=== PATIENT | male | born 2005 | race Caucasian/White ===

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

== ENCOUNTER 2025-01-23 16:21 | Emergency (ER) | payer BC, SELFPAY ==
[2025-01-23 16:30] VITALS: BP 137/64; PULSE 78; RESP 18; TEMP 36.4; O2SAT 100
--- NOTE | 2025-01-23 16:47 | ED_ITS ---
HPI - URI/Sore Throat General Chief Complaint: Upper Respiratory Infection Stated Complaint: Sinus Time Seen by Provider: 01/23/25 16:38 Source: patient and RN notes reviewed Mode of arrival: ambulatory Limitations: no limitations History of Present Illness HPI Narrative: Patient presents today complaining of a slight cough since last night with sore throat, postnasal drip, body aches, headache, nasal congestion and some mild sweats since this morning. Denies fever, shortness of breath, chest pain. He has tried no medication for symptoms prior to arrival. History of some seasonal allergies in the past but does not currently take any medication for them. Related Data Home Medications ?Medication ?Instructions ?Recorded ?Confirmed ?Last Taken ?Type No Home Medications 01/23/25 01/23/25 Unknown History Allergies Allergy/AdvReac Type Severity Reaction Status Date / Time No Known Allergies Allergy Verified 01/23/25 16:33 Review of Systems Review of Systems: CONSTITUTIONAL: Denies fever, chills.+ body aches, sweats EYES: Denies visual changes, redness, or discharge. ENT: Denies otalgia.+ sore throat, congestion, rhinorrhea CARDIOVASCULAR: Denies chest pain, palpitations, or edema. RESPIRATORY: Denies dyspnea.+ cough GASTROINTESTINAL: Denies abdominal pain, nausea, vomiting, or diarrhea. GENITOURINARY: Denies dysuria or hematuria. SKIN: Denies rash, itching, or wounds. MUSCULOSKELETAL: Denies back pain, joint pain, or myalgia. NEUROLOGIC: Denies headache, numbness, tingling, or weakness. PSYCH: Denies depression or anxiety. [facility] Past Medical History Medical History Rash Exposure to COVID-19 virus Low vitamin D level Surgical History Surgical History History of tonsillectomy and adenoidectomy Family History Family History Father No problems noted. Mother No problems noted. Sibling No problems noted. Social History Social History (Updated 08/21/24 @ 12:07 by Iram Golden MA) Smoking status: Never smoker Second hand tobacco smoke exposure: No Alcohol intake: never Alcohol use details: 8-14 a week Substance use: current Do You Feel Safe in your Home?: Yes Lack of Transportation: No Lack of Food: Never True Current Housing: I Have Housing Concerned About Future Housing: No Difficulty Paying Gas/Electric Bills: No Difficulty Paying for Meds: No Currently Unemployed: No Education: High School Diploma/GED Difficulty w/ Childcare or Family Care: No Living arrangements: with friend(s) Occupation/Education: student Additional occupation/education comments: [address] [place] [address] Gender identity (if verbalized by the patient): Male Agree to blood products: Yes Comments At time of signature, I have reviewed and agree with nursing past medical, surgical, social and family history unless otherwise noted. Please see nursing chart for further information. There is no relevant family history pertinent to the presenting complaint Exam Narrative: GENERAL: Mildly ill-appearing, well-nourished, and in no acute distress. HEAD: Normocephalic, atraumatic. EYES: EOMI. No redness or drainage. Conjunctivae normal. ENT: Mucous membranes pink and moist. Nares congested with rhinorrhea. TMs normal bilaterally. Throat normal with small amount of postnasal drainage. Uvula midline. NECK: Normal AROM. Supple. No lymphadenopathy. CHEST: No respiratory distress. Clear to auscultation. HEART: Regular rate and rhythm. No murmur appreciated. EXTREMITIES: Normal range of motion. No edema. SKIN: Warm, dry, no rash. Capillary refill normal. Normal skin turgor. NEURO: No focal deficits. Alert and oriented x3. Gait steady. PSYCH: Normal affect. No signs of depression or anxiety. Course Course Level of Care: Express Care Visit Vital Signs Vital signs: Vital Signs Temperature 97.6 F 01/23/25 16:30 Pulse Rate 78 01/23/25 16:30 Respiratory Rate 18 01/23/25 16:30 Blood Pressure 137/64 01/23/25 16:30 Pulse Oximetry 100 01/23/25 16:30 Oxygen Delivery Room Air 01/23/25 16:30 Temperature 97.6 F 01/23/25 16:30 Pulse Rate 78 01/23/25 16:30 Respiratory Rate 18 01/23/25 16:30 Blood Pressure 137/64 01/23/25 16:30 Pulse Oximetry 100 01/23/25 16:30 Oxygen Delivery Room Air 01/23/25 16:30 Reviewed MDM - URI/Sore Throat MDM Narrative Medical decision making narrative: Patient declines testing for influenza or COVID-19. Symptoms likely viral in etiology. Discussed [id number] medication use and duration of illness. No prescription medications indicated at this time. Anticipatory guidance given. Differential Diagnosis Differential diagnosis: Likely upper respiratory infection, sinusitis, viral infection, influenza and other (COVID-19) Critical Care Time Critical Care Time Critical Care Time: No Discharge Plan Discharge Clinical Impression: Upper respiratory infection Qualifiers: URI type: unspecified URI Qualified Code(s): J06.9 - Acute upper respiratory infection, unspecified Patient Disposition: Home Condition: Stable Instructions: Upper Respiratory Infection (DC) Additional Instructions: Your symptoms are likely due to a viral illness or seasonal allergies, both of which are not treated with antibiotics. Virus symptoms can last for up to 7- 10days. Take Tylenol or ibuprofen for pain or fever. Consider starting an antihistamine/decongestant combination such as Zyrtec D, Claritin-D, or Ines D. Rest and stay hydrated. Follow up with your PCP in 7-10 days if symptoms are not improving. Go to the ER immediately if you develop shortness of breath, difficulty swallowing, or any other concerning symptoms. Your blood pressure was elevated above 120/80 today at Urgent Care. This puts you above the threshold for follow up. Please schedule a followup visit with your personal physician as soon as possible, for further evaluation and treatment. Even blood pressure exceeding 120/80 may indicate pre-hypertension. Patient Language: Cambodian Prescriptions: No Action No Home Medications Follow-up/Referrals: PHYSICIAN,COMMERCIAL HVAC TECHNICIAN [Primary Care Provider] - Time of Disposition: 16:48
== END 2025-01-23 16:53 | disposition home or self-care (01) ==
PROVIDERS: Emergency Provider Nurse Practitioner
DX: J06.9 Acute upper respiratory infection, unspecified (principal)
CPT/HCPCS: 99211; G0463